=== PATIENT | female | born 1955 | race Caucasian/White ===

== ENCOUNTER 2021-03-29 08:20 | Outpatient (CLI) | payer MEDICARE, MEDICAID ==
[~2021-03-29 08:20] MED LIST: AMLO-211 PO; CIPR500T87 PO; FLUT1DIS5 IH; IPRA3AMP30 INH; LEVA15HF4 INH; METF500T17 PO; OXYC5TAB98 PO; POLY17PO5 PO; SENN-211 PO; TRAM100T13 PO
[2021-03-29] MEDS ORDERED: LIDOCAINE-MPF 1%, 5ML ONE (08:40)
== END 2021-03-29 23:59 | disposition home or self-care (01) ==
LOC: RAD 08:20
PROVIDERS: ATTEND Internal Medicine Hematology & Oncology
DX: C25.7 Malignant neoplasm of other parts of pancreas (principal); I82.503 Chronic embolism and thrombosis of unspecified deep veins of lower extremity, bilateral; E11.9 Type 2 diabetes mellitus without complications; J44.9 Chronic obstructive pulmonary disease, unspecified; Z88.8 Allergy status to other drugs, medicaments and biological substances; Z90.49 Acquired absence of other specified parts of digestive tract; Z79.899 Other long term (current) drug therapy; Z87.891 Personal history of nicotine dependence; Z80.1 Family history of malignant neoplasm of trachea, bronchus and lung; Z79.2 Long term (current) use of antibiotics
CPT/HCPCS: 49083; 93970